=== PATIENT | female | born 1965 | race Caucasian/White ===

== ENCOUNTER 2019-04-01 12:36 | Emergency (ER) | payer MEDICARE, OTHER ==
[~2019-04-01] VITALS: Ht 157.5 cm; Wt 109.0 kg
[2019-04-01 22:11] VITALS: BP 125/82
== END 2019-04-01 23:41 ==
LOC: ED 18:21
DX: F33.9 Major depressive disorder, recurrent, unspecified (principal); N39.0 Urinary tract infection, site not specified; R45.851 Suicidal ideations
CPT/HCPCS: 36415; 80053; 80307; 81001; 84439; 84443; 85025; 87086; 93005; 99285